=== PATIENT | female | born 1975 | race Caucasian/White ===

== ENCOUNTER 2019-01-26 07:41 | Outpatient (CLI) | payer BC ==
--- NOTE | 2019-01-26 08:15 | MMO ---
Bilateral MAMMO Bilat Screen [facility]. CLINICAL HISTORY: Patient is 43 years old and is seen for screening. The patient has the following family history of breast cancer: paternal aunt. The patient has no personal history of cancer. VIEWS: The views performed were: bilateral craniocaudal with tomosynthesis and bilateral mediolateral oblique with tomosynthesis. This study has been interpreted with the assistance of computer-aided detection. MAMMOGRAM FINDINGS: The breasts are heterogeneously dense, which could obscure a lesion on mammography. Finding 1: There are several intramammary lymph nodes seen in the left breast. Finding 2: There are benign appearing calcifications seen in the left breast. There are no suspicious masses, suspicious calcifications, or new areas of architectural distortion. IMPRESSION: THERE IS NO MAMMOGRAPHIC EVIDENCE OF MALIGNANCY. A ROUTINE FOLLOW-UP MAMMOGRAM IN 1 YEAR IS RECOMMENDED. THE RESULTS OF THIS EXAM WERE SENT TO THE PATIENT. ACR BI-RADS Category 2 - Benign finding MAMMOGRAPHY NOTE: 1. A negative mammogram report should not delay a biopsy if a dominant of clinically suspicious mass is present. 2. Approximately 10% to 15% of breast cancers are not detected by mammography. 3. Adenosis and dense breasts may obscure an underlying neoplasm. Reported by: SURESH MCKNIGHT MD Electonically Signed: [id number]
== END 2019-01-26 07:42 | disposition home or self-care (01) ==
LOC: BICMAMMO 07:41
PROVIDERS: ATTEND Family Medicine
DX: Z12.31 Encounter for screening mammogram for malignant neoplasm of breast (principal); Z80.3 Family history of malignant neoplasm of breast
CPT/HCPCS: 77063; 77067

== ENCOUNTER 2020-02-22 06:09 | Outpatient (CLI) | payer BC ==
[2020-02-23 12:07] LABS: SARS-CoV-2 MS2 Positive; SARS-CoV-2 N Gene Negative; SARS-CoV-2 S Gene Negative; SARS-CoV-2 by NAA Not Detected (NotDetected); SARS-CoV-2 orf1ab Negative
[2020-02-24 13:22] LABS: Hemoglobin 13.3 g/dL (12.0-16.0); Mean Corpuscular HGB CONC 32.8 g/dL (32.0-36.0); Mean Corpuscular Hemoglobin 30.3 pg (27.0-31.0); Mean Corpuscular Volume 92.3 fL (78.0-98.0); Mean Platelet Volume 9.5 fL (7.4-10.4); Platelet Count 240 thou/uL (130-400); RBC Distribution Width 11.6 % (11.5-14.5); Red Blood Cell (RBC) Count 4.41 mill/uL (4.20-5.40); White Blood Cell (WBC) Count 7.4 thou/uL (4.8-10.8)
== END 2020-02-22 06:10 | disposition home or self-care (01) ==
LOC: LABBT 06:09
PROVIDERS: ATTEND Obstetrics & Gynecology
DX: Z01.812 Encounter for preprocedural laboratory examination (principal); Z20.828 Contact with and (suspected) exposure to other viral communicable diseases; D25.9 Leiomyoma of uterus, unspecified; N92.0 Excessive and frequent menstruation with regular cycle
CPT/HCPCS: 85027; 86850; 86900; 86901; 87635; U0003

== ENCOUNTER 2020-02-27 05:52 | Day surgery (SDC) | payer BC ==
[2020-02-23 10:09] VITALS: BMI 36.3
[2020-02-27] MEDS ORDERED: CeleCOXIB 100 MG CAP ONE (06:04)
[2020-02-27] MEDS ORDERED: Gabapentin 300 MG CAP ONE (06:04)
[2020-02-27] MEDS ORDERED: Famotidine/PF 20 mg/2ml Vial ONE ×2 (06:04→06:36)
[2020-02-27] MEDS ORDERED: HYDROmorphone 2 MG/ML VIAL ONE (06:31)
[2020-02-27] MEDS ORDERED: Scopolamine 1.5 mg/72 hour Patch ONE (06:36)
[2020-02-27] MEDS ORDERED: Midazolam HCl 2 mg/2 ml Vial ONE (06:38)
[2020-02-27] MEDS ORDERED: Bupivacaine PF 0.5% 30 ML VIAL ONE (06:46)
[2020-02-27] MEDS ORDERED: Lidocaine 1% w/Epinephrine 1:100K 20 ML VIAL ONE (06:46)
[2020-02-27] MEDS ORDERED: Methylene Blue 50 MG/10 ML AMPUL ONE (06:46)
[2020-02-27] MEDS ORDERED: Ropivacaine 0.2% 550 ML 750 ML NERVE BLCK SCH (08:00)
[2020-02-27] MEDS ORDERED: Ropivacaine HCl/PF 750 ML in Premix Bag 1 BAG NERVE BLCK SCH (08:15)
[2020-02-27] MEDS ORDERED: SUGAMMADEX SODIUM 200 MG/2 ML VIAL ONE (09:06)
--- NOTE | 2020-02-27 12:48 | OP ---
DATE OF PROCEDURE: 02/27/2020 PREOPERATIVE DIAGNOSES: Menorrhagia, fibroids, pelvic pain. POSTOPERATIVE DIAGNOSES: Menorrhagia, fibroids, pelvic pain. PROCEDURE PERFORMED: Robotic-assisted total laparoscopic hysterectomy with bilateral salpingectomy and an ON-Q pump placement. RIG MECHANIC: Celia Lauren PA-C. COMPLICATIONS: None. ESTIMATED BLOOD LOSS: 50 mL or less. ANESTHESIA: GETA per Dr. [place]ellin. COUNTS: Correct. OPERATIVE FINDINGS: 1. Normal-appearing vagina and cervix. 2. Normal-appearing fallopian tubes and ovaries. 3. No intraabdominal pelvic adhesions. 4. Enlarged fibroid uterus with dominant anterior fibroid noted. PROCEDURE IN DETAIL: The patient was taken back to the OR with IV fluids running. Once she was in the OR, general anesthesia was obtained. The patient was placed in low dorsal lithotomy position with her arms tucked at her side. The abdomen and vagina were then prepped and draped in normal fashion for gynecologic laparoscopy. Surgeons were gowned and gloved. A Chong catheter drained the bladder and a Cachorro syringe was attached for bladder manipulation during the case. An operative speculum was placed into the vagina. The anterior lip of the cervix was grasped with a single-tooth tenaculum and the uterus sounded to 8 cm. A [employer] manipulator was assembled with a 4-cm cup and 8 cm tip and placed into the uterus and vagina in routine fashion for uterine manipulation. The surgeon's gloves were changed and attention was turned to the laparoscopic portion of the case. Beginning at the supraumbilical fold, Marcaine was injected underneath the skin and into the subcutaneous tissue. A 12 mm skin incision was then made with a scalpel. The subcutaneous layer was bluntly dissected with a hemostats and a Veress needle was placed through this incision into the peritoneal cavity for distention of the abdomen. After the abdomen was distended, the Veress needle was removed and a 12 mm trocar was placed through the distended abdomen without difficulty. The laparoscope was then placed through this trocar. The patient was placed in Trendelenburg position with the above findings noted. Next, under direct visualization and using similar technique, the right upper and right lower quadrant ports were placed as well as the left lower quadrant port. After all 4 ports were placed, the robotic arms were docked and the instruments were placed under direct visualization into the pelvis. Beginning on the patient's left side, the left fallopian tube segment was grasped, elevated away from the pelvic sidewall, cauterized and transected. It was removed for pathologic review. The utero-ovarian ligament on the patient's left side was cauterized and transected allowing the left ovary to fall away to the left pelvic sidewall. The round ligament on the patient's left side was cauterized and transected. It was dissected along its anterior and posterior leaves toward the level of the uterine artery. Uterine artery was then skeletonized. The bladder reflection was then dissected off the uterus and cervix. The bladder was back filled with the bladder noted to be well away from the areas of dissection in the planned colpotomy site. Next, the uterine vessels on the patient's left side were cauterized and transected. Attention was then turned to the contralateral side, where the right fallopian tube segment was cauterized, transected, and removed from the operative field. The right utero-ovarian ligament was cauterized and transected allowing the right ovary to fall away to the pelvic sidewall. The right round ligament was cauterized, transected, and divided into anterior and posterior leaves. The broad ligament was dissected down towards the level of the uterine artery which was then skeletonized, cauterized, and transected. The dissection of the bladder reflection away from the planned colpotomy site was completed from the right corner. The vesicouterine fascia was further dissected away from the planned colpotomy site. Next, the colpotomy was performed using monopolar scissors in a circumferential fashion. Once the uterine specimen was completely incised from the vagina, the uterine specimen was retracted without difficulty into the vagina. The vaginal cuff was then copiously irrigated and dried. Any small areas of bleeding were controlled with cauterization. The vaginal cuff was then closed with Stratafix suture in a running fashion. It was closed in 2 layers. The needle was then removed and accounted for outside of the abdominal cavity. The vaginal cuff, ovaries and areas of dissection were copiously irrigated and suctioned dry. The pressure was dropped to 5 mmHg with no areas of bleeding noted. An ON-Q catheter tip was placed through the subcutaneous tissue into the abdominal cavity and directed down in towards the pelvis. It was primed and noted to be working well at the end of the case. All instruments were then removed from the abdomen. The counts were correct. The gas was released from the abdomen and the patient was taken out of Trendelenburg position. The supraumbilical fascia was reapproximated with Vicryl suture. All 4 skin incisions were closed with Monocryl suture and dressed with Dermabond dressing. The vagina was inspected at the end of the case with no areas of bleeding noted and the final count was correct. A sterile dressing was placed over the ON-Q catheter insertion site. The patient tolerated the procedure well. There were no complications. Job ID: [id number] [id number]
[2020-02-27] MEDS ORDERED: Ondansetron PF 4 MG/2 ML Vial ONE (13:43)
[2020-02-27] MEDS ORDERED: ePHEDrine 50 MG/ML VIAL ONE (13:43)
[2020-02-27] MEDS ORDERED: Esmolol 100 MG/10 ML VIAL ONE (13:43)
[2020-02-27] MEDS ORDERED: Rocuronium Bromide 10 MG/ML (10ML VIAL) ONE (13:43)
[2020-02-27] MEDS ORDERED: Ketorolac Tromethamine 30 MG/ML VIAL ONE (13:43)
[2020-02-27] MEDS ORDERED: Succinylcholine 200 MG/10 ml SYRINGE FS ONE (13:43)
[2020-02-27] MEDS ORDERED: Dexamethasone 20 MG/5 ML VIAL ONE (13:43)
[2020-02-27] MEDS ORDERED: Lidocaine 1% PF 5 ML VIAL ONE (13:43)
[2020-02-27] MEDS ORDERED: Glycopyrrolate 0.2 MG/ML 5 ML SYRINGE ONE (13:43)
== END 2020-02-27 13:00 | disposition home or self-care (01) ==
LOC: SDC 05:52
PROVIDERS: ATTEND Obstetrics & Gynecology
PROC: 0UT74ZZ Resection of Bilateral Fallopian Tubes, Percutaneous Endoscopic Approach (ICD-10-PCS; principal; 2020-02-27)
PROC: 0UT94ZZ Resection of Uterus, Percutaneous Endoscopic Approach (ICD-10-PCS; principal; 2020-02-27)
DX: D25.2 Subserosal leiomyoma of uterus (principal); N88.8 Other specified noninflammatory disorders of cervix uteri; E66.9 Obesity, unspecified; F41.9 Anxiety disorder, unspecified; K59.09 Other constipation; Z79.899 Other long term (current) drug therapy
CPT/HCPCS: 36415; 86850; 86900; 86901; 88307; J0690; J1100; J1170; J1885; J2250; J2405; J2795; J3490; Q9968; S0020; S0028

== ENCOUNTER 2021-11-25 14:12 | Outpatient (CLI) | payer BC | END 2021-11-25 14:13 | disposition home or self-care (01) | LOC: BICMAMMO 14:12 | PROVIDERS: ATTEND Family Medicine | DX: R92.8 Other abnormal and inconclusive findings on diagnostic imaging of breast (principal) | CPT/HCPCS: 77066; G0279 ==